=== PATIENT | male | born 1955 | race Caucasian/White ===

== ENCOUNTER → 2019-08-16 08:42 | Outpatient (BNVA) | payer OTHER, SELFPAY | PROVIDERS: PCP Specialist; Visit Provider Specialist | DX: G44.011 Episodic cluster headache, intractable (principal); F17.210 Nicotine dependence, cigarettes, uncomplicated; Z79.899 Other long term (current) drug therapy | CPT/HCPCS: 99214 ==

== ENCOUNTER → 2020-08-07 08:56 | Outpatient (BNVA) | payer OTHER, SELFPAY | PROVIDERS: PCP Registered Nurse; Visit Provider Specialist | DX: G44.009 Cluster headache syndrome, unspecified, not intractable (principal); L25.9 Unspecified contact dermatitis, unspecified cause; F17.210 Nicotine dependence, cigarettes, uncomplicated | CPT/HCPCS: 99213 ==

== ENCOUNTER 2021-08-08 10:01 | Outpatient (CLI) | payer OTHER, SELFPAY ==
[2021-08-08 10:50] LABS: Lithium 0.3 mmol/L (0.6-1.2)
== END 2021-08-08 10:02 | disposition home or self-care (01) ==
LOC: LAB 10:04
PROVIDERS: PCP Registered Nurse; Visit Provider Specialist
DX: Z79.899 Other long term (current) drug therapy (principal)
CPT/HCPCS: 36415; 80178